=== PATIENT | male | born 1975 | race Caucasian/White ===

== ENCOUNTER → 2016-10-30 | Outpatient (CLI) | payer BC ==
[2016-10-30 10:30] LABS: Basophils # (A) 0.1 k/uL (0-0.2); Basophils % (A) 1 %; Eosinophils # (A) 0.1 k/uL (0-0.7); Eosinophils % (A) 2 %; HCT 44.3 % (39.0-53.0); HDW 2.64; HGB 15.4 gm/dL (13.0-17.5); Luc # (Auto) 0.16; Luc % (Auto) 3; Lymphocytes # (A) 2.3 k/uL (1.0-4.8); Lymphocytes % (A) 42 %; MCH 29.8 pg (25.0-35.0); MCHC 34.8 g/dL (31.0-37.0); MCV 85.9 fL (80.0-100.0); Mean Platelet Volume 8.1; Monocytes # (A) 0.4 k/uL (0-1.0); Monocytes % (A) 7 %; Neutrophils # (A) 2.5 k/uL (1.3-7.7); Neutrophils % (A) 46 %; RBC 5.16 m/uL (4.30-5.90); RDW 13.3 % (11.5-15.5); WBC 5.4 k/uL (3.8-10.6); WBC (Perox) 5.71
[2016-10-30 11:14] LABS: ALT 42 U/L (21-72); AST 32 U/L (17-59); Alkaline Phosphatase 57 U/L (38-126); Anion Gap 9 mmol/L; Blood Urea Nitrogen 25 mg/dL (9-20); Calcium 9.1 mg/dL (8.4-10.2); Carbon Dioxide 22 mmol/L (22-30); Chloride 108 mmol/L (98-107); Cholesterol 202 mg/dL (<200); Glucose 97 mg/dL (74-99); HDL Cholesterol 50 mg/dL (40-60); Non-African American GFR(MDRD) >60 (>60 ml/min/1.73 sqM); Potassium 4.5 mmol/L (3.5-5.1); Sodium 139 mmol/L (137-145); Total Bilirubin 0.3 mg/dL (0.2-1.3); Total Protein 6.2 g/dL (6.3-8.2); Triglycerides 102 mg/dL (<150)
== END | disposition home or self-care (01) ==
LOC: LABWHC1 09:51
PROVIDERS: ATTEND Family Medicine
DX: Z00.00 Encounter for general adult medical examination without abnormal findings (principal); F41.1 Generalized anxiety disorder
CPT/HCPCS: 36415; 80053; 80061; 84403; 84439; 84443; 85025

== ENCOUNTER 2020-10-08 18:20 | Emergency (ER) | payer BC ==
[2020-10-08 18:52] VITALS: RESP 16; TEMP 97.8
[2020-10-08] MEDS ORDERED: IBUPROFEN 400 MG TAB PO STA (19:30)
--- NOTE | 2020-10-08 19:31 | ED ---
Lower Extremity Injury HPI - General Chief Complaint: Extremity Injury, Lower Stated Complaint: Right ankle injury Time Seen by Provider: 10/08/20 19:27 Source: patient Mode of arrival: wheelchair Limitations: no limitations - History of Present Illness Initial Comments: This patient is a 45-year-old man who presents to be evaluated for right ankle injury. The patient states that he had been on his roof and was coming down a ladder. He slipped and fell probably 6 feet landing on the right ankle. He states that since that time there has been pain when he attempts to walk. He also has some swelling on the lateral aspect. The pain is mainly along the lateral aspect. He denies any foot pain. No knee pain. There were no other injuries. MD Complaint: ankle injury Onset/Timin -: hour(s) Injury: Ankle: Right Type of Injury: inversion Place: street/outdoors Severity: moderate Improves With: nothing Worsens With: weight bearing Context: fall Associated Symptoms: swelling, able to partially bear weight - Related Data Previous Rx's Medication Instructions Recorded HYDROcodone/APAP 5-325MG [[place] 1 tab PO Q4HR PRN 3 Days #18 tab 10/08/20 5-325] Ibuprofen 800 mg PO TID #20 tablet 10/08/20 Allergies Allergy/AdvReac Type Severity Reaction Status Date / Time sulfamethoxazole Allergy Rash/Hives Verified 10/08/20 18:48 [From Bactrim] trimethoprim [From Bactrim] Allergy Rash/Hives Verified 10/08/20 18:48 Review of Systems ROS Statement: Those systems with pertinent positive or pertinent negative responses have been documented in the HPI. ROS Other: All systems not noted in ROS Statement are negative. Constitutional: Denies: weakness Musculoskeletal: Reports: as per HPI, joint swelling, arthralgia. Denies: back pain Skin: Denies: lesions Neurological: Denies: headache, weakness, numbness Past Medical History Past Medical History: No Reported History History of Any Multi-Drug Resistant Organisms: None Reported Past Surgical History: No Surgical Hx Reported Smoking Status: Never smoker Past Alcohol Use History: None Reported Past Drug Use History: None Reported General Exam Limitations: no limitations General appearance: alert, in no apparent distress Right Upper Leg exam: Present: normal inspection, full ROM. Absent: tenderness, swelling Knee exam: Present: normal inspection, full ROM. Absent: tenderness, swelling Lower Leg exam: Present: normal inspection, full ROM. Absent: tenderness, swelling Ankle exam: Present: tenderness, swelling. Absent: normal inspection, full ROM, abrasion, laceration, ecchymosis, deformity, crepitus, dislocation Foot/Toe exam: Present: normal inspection, full ROM. Absent: tenderness, swelling, calcaneal tenderness, tenderness at base of 5th metatarsal Neurovascular tendon exam: Present: no vascular compromise. Absent: pulse deficit, abnormal cap refill, motor deficit, sensory deficit, tendon deficit, extremity cold to touch, abnormal 2-point discrimination, decreased fine/light touch, foot drop Skin exam: Present: warm, dry, intact, normal color. Absent: rash Course Vital Signs 10/08/20 18:48 Temperature 97.8 F Pulse Rate 63 Respiratory 16 Rate Blood Pressure 125/85 O2 Sat by Pulse 98 Oximetry Disposition Clinical Impression: Tibia fracture Disposition: HOME SELF-CARE Condition: Good Instructions (If sedation given, give patient instructions): Ankle Fracture (ED) Prescriptions: Ibuprofen 800 mg PO TID #20 tablet HYDROcodone/APAP 5-325MG [[place] 5-325] 1 tab PO Q4HR PRN 3 Days #18 tab PRN Reason: Pain Is patient prescribed a controlled substance at d/c from ED?: No Referrals: Derick Rendon MD [Primary Care Provider] - 1-2 days Krunal Bobo MD [STAFF PHYSICIAN] - 1-2 days
--- NOTE | 2020-10-08 19:55 | XR ---
EXAMINATION TYPE: XR ankle complete RT DATE OF EXAM: 10/08/2020 COMPARISON: None HISTORY: Pain, fall 6 feet from ladder TECHNIQUE: Three-view right ankle FINDINGS: The lateral projection there is a lucency within the anterior tibia with some space on the articular surface suspicious for fracture. This is not identified on additional imaging. Correlate wi th location of patient's pain. The ankle mortise appears intact. There is soft tissue swelling over the lateral malleolus. IMPRESSION: 1. Suspected occult fracture along the anterior tibial articular surface on the lateral projection. 2. Soft tissue swelling.
[2020-10-08 20:44] VITALS: BP 121/79; PULSE 78
== END 2020-10-08 20:35 | disposition home or self-care (01) ==
LOC: EC 18:20
DX: S82.201A Unspecified fracture of shaft of right tibia, initial encounter for closed fracture (principal); W01.0XXA Fall on same level from slipping, tripping and stumbling without subsequent striking against object, initial encounter; W11.XXXA Fall on and from ladder, initial encounter; Y93.89 Activity, other specified
CPT/HCPCS: 99283

== ENCOUNTER 2023-07-06 08:37 | Day surgery (SDC) | payer BC ==
[2023-07-06] MEDS: LACTATED RINGERS 1,000 ML IV SCH (09:10)
[2023-07-06 09:12] VITALS: TEMP 97.5
[2023-07-06] MEDS ORDERED: PROPOFOL 10 MG/ML 20 ML VIAL IV ONE (09:20)
--- NOTE | 2023-07-06 09:24 | P.GSHP ---
History of Present Illness H&P Date: 07/06/23 Chief Complaint: Colon cancer screening 47-year-old male here for colonoscopy. This is his first colonoscopy. No bowel complaints. No family history of colon cancer. Past Medical History Past Medical History: No Reported History History of Any Multi-Drug Resistant Organisms: None Reported Past Surgical History: No Surgical Hx Reported Additional Past Surgical History / Comment(s): liposuction Past Anesthesia/Blood Transfusion Reactions: No Reported Reaction Smoking Status: Former smoker Medications and Allergies Home Medications Medication Instructions Recorded Confirmed Type Dextroamphetamine/Amphetamine 30 mg PO DAILY 07/02/23 07/06/23 History [Adderall] Allergies Allergy/AdvReac Type Severity Reaction Status Date / Time sulfamethoxazole Allergy Rash/Hives Verified 07/06/23 08:52 [From Bactrim] trimethoprim [From Bactrim] Allergy Rash/Hives Verified 07/06/23 08:52 Surgical - Exam Vital Signs Temp Pulse Resp BP Pulse Ox 97.5 F L 86 18 116/83 95 07/06/23 08:58 07/06/23 08:58 07/06/23 08:58 07/06/23 08:58 07/06/23 08:58 Physical exam: General: Well-developed, well-nourished HEENT: Normocephalic, sclerae nonicteric Abdomen: Nontender, nondistended Extremities: No edema Neuro: Alert and oriented Assessment and Plan (1) Colon cancer screening Narrative/Plan: Will proceed with colonoscopy at this time. Current Visit: Yes Status: Acute Code(s): Z12.11 - ENCOUNTER FOR SCREENING FOR MALIGNANT NEOPLASM OF COLON SNOMED Code(s): 989064421
--- NOTE | 2023-07-06 09:33 | P.PCN ---
Date of Procedure: 07/06/23 Procedure(s) Performed: PREOPERATIVE DIAGNOSIS: Colon cancer screening POSTOPERATIVE DIAGNOSIS: Normal exam PROCEDURE: Colonoscopy ANESTHESIA: MAC SURGEON: Marcell Perkins M.D. SPECIMENS: None ENDOSCOPIC PROCEDURE: The patient was placed on the endoscopy table in the left decubitus position. The Olympus colonoscope was inserted into the anus and passed under direct visualization to the base of the cecum. The appendiceal orifice was visualized. From that point the scope was slowly withdrawn inspecti ng all surfaces carefully. There were no neoplastic inflammatory or polypoid lesions throughout the cecum, ascending, transverse, descending, sigmoid and rectum. There was no diverticulosis noted. Digital rectal examination was normal. The patient was taken to the recovery room in stable condition per anesthesia guidelines. RECOMMENDATIONS: Resume diet. Follow-up colonoscopy 10 years.
[2023-07-06 09:46] VITALS: RESP 16
[2023-07-06 10:17] VITALS: BP 123/88; PULSE 79
== END 2023-07-06 10:20 | disposition home or self-care (01) ==
LOC: ORWHC2ENDO 08:37
PROVIDERS: ATTEND Surgery
DX: Z12.11 Encounter for screening for malignant neoplasm of colon (principal); F90.9 Attention-deficit hyperactivity disorder, unspecified type; Z87.891 Personal history of nicotine dependence; Z88.1 Allergy status to other antibiotic agents; Z88.2 Allergy status to sulfonamides; Z79.899 Other long term (current) drug therapy
CPT/HCPCS: 45378; J2704

== ENCOUNTER → 2024-02-07 | Outpatient (CLI) | payer BC ==
--- NOTE | 2024-02-07 18:36 | XR ---
EXAMINATION TYPE: XR ankle complete bilateral DATE OF EXAM: 02/07/2024 6:11 PM CLINICAL INDICATION: Male, 48 years old with history of M25.579 PAIN IN UNSPECIFIED ANKLE AND JOINTS OF UN; COMPARISON: None TECHNIQUE: XR ankle complete bilateral; ankle is imaged in frontal, lateral and oblique projections. FINDINGS: Soft tissue swelling around the ankle, right greater than left. No evidence of fracture. Multifocal d egeneration changes throughout the joints of the foot bilaterally. IMPRESSION: 1. No evidence of acute fracture bilaterally. 2. Multifocal degeneration changes throughout the joints of the foot and ankle. 3. Soft tissue swelling around the right ankle. [facility], , 02/07/2024 6:34 PM
== END | disposition home or self-care (01) ==
LOC: RADXRMAIN 17:43
PROVIDERS: ATTEND Family Medicine
DX: M25.579 Pain in unspecified ankle and joints of unspecified foot